=== PATIENT | female | born 1950 | race Caucasian/White ===

== ENCOUNTER 2021-12-13 11:23 | Outpatient (CLI) | payer MEDICARE, OTHER, SELFPAY ==
[2021-12-13 13:05] LABS: Vitamin D,25 Hydroxy 58.2 ng/mL
[2021-12-13 13:13] LABS: ALB/GLOB Ratio 1.3 RATIO (0.9-2.4); AST(SGOT) 23 U/L (15-37); Alanine Aminotransfer ALT/SGPT 26 U/L (13-56); Alkaline Phosphatase 82 U/L (45-117); Anion Gap 5 (5-15); BUN 15 mg/dL (7-18); BUN/Creat Ratio 17.7 RATIO (10-20); Calcium,Total 9.5 mg/dL (8.5-10.1); Chloride 107 mmol/L (98-107); Cholesterol 183 mg/dL (200); Creatinine, Serum 0.85 mg/dL (0.55-1.02); EST Glomerular Filtration Rate 70 mL/min (>60); Est Glom Filt Rate - Afr Amer 85 mL/min (>60); Free T3 2.8 pg/mL (2.18-3.98); Globulin 3.1 g/dL (2.2-4.2); Glucose 97 mg/dL (74-106); High Density Lipoprotein 80 mg/dL; Potassium 4.5 mmol/L (3.5-5.1); Protein, Total 7.1 g/dL (6.4-8.2); Sodium Level 140 mmol/L (136-145); T4 Free Direct 1.11 ng/dL (0.76-1.46); Thyroid Stim Hormone (TSH) 2.67 uIU/mL (0.358-3.74); Triglycerides 59 mg/dL; Very Low Density Lipoprotein 12 mg/dL (5-40)
[2021-12-14 21:07] LABS: Thyroid Peroxidase AB 8 IU/mL (0-34)
[2021-12-14 21:33] LABS: Thyroglobulin Antibody < 1.0 IU/mL (0.0-0.9)
== END 2021-12-13 23:59 | disposition home or self-care (01) ==
LOC: BIMLAB 11:24
PROVIDERS: PCP Internal Medicine; Referring Provider Internal Medicine; Visit Provider Internal Medicine
DX: E03.9 Hypothyroidism, unspecified (principal); L65.9 Nonscarring hair loss, unspecified; Z13.220 Encounter for screening for lipoid disorders; E55.9 Vitamin D deficiency, unspecified
CPT/HCPCS: 36415; 80053; 80061; 82306; 82533; 84439; 84443; 84481; 86376; 86800

== ENCOUNTER → 2025-08-03 | Outpatient (CLI) | payer MEDICARE, SELFPAY ==
--- OUTSIDE RECORDS SUMMARY | 2025-08-03 13:06 | XMS RPT_ITS | CCD ---
Author Organization [facility] Care Team Providers Care [place] Guide Name Role Phone MISC, PHYSICIAN Unavailable Unavailable Paco Fuentes MD Primary Care Provider [phone] Jesús Montes MD Unavailable Allergies Allergy Classification Reported Allergen(s) Allergy Type Date of Onset Reaction(s) Facility (1 source) Codeine Drug Allergy 04-05-2015 GI Upset [facility] (1 source) Sulfonamides (Antibiotic) Drug Allergy 04-05-2015 Rash [facility] Medications Completed/Discontinued Medications Medication Drug Class(es) Dates Sig (Normalized) Sig (Original) Calcium Carbonate (1 source) calcium carbonat e (CALCIUM 300 ORAL) Take by mouth. 0 Active Comment on above: Take by mouth. cholecalciferol 0.1 mg oral capsule (1 source) Vitamin D Start: 04-05-2015 cholecalciferol, vitamin D3, 4,000 unit cap Take by mouth. 0 04/05/2015 Active Comment on above: Take by mouth. lysine 500 mg oral tablet (1 source) Start: 04-05-2015 Lysine (L-LYSINE) 500 mg tab Take by mouth. 0 04/05/2015 Active Comment on above: Take by mouth. omega-3 fatty acids (SUPER OMEGA-3) 1,000 mg cap (1 source) Start: 04-05-2015 omega-3 fatty acids (SUPER OMEGA-3) 1,000 mg cap Take 2 capsules by mouth twice daily. 0 04/05/2015 Active Comment on above: Take 2 capsules by m outh twice daily. Problems Active Problems Problem Classification Problem Date Documented Da te Episodic/Chronic Cardiac dysrhythmias (1 source) Atrial fibrillation; Translations: [Unspecified atrial fibrillation] Onset: 03-30-2015 03-30-2015 Chronic Unclassified (1 source) Unknown / UNK(Unknown) Onset: 12-27-2017 Past or Other Problems Problem Classification Problem Date Documented Da te Episodic/Chronic Unclassified (1 source) SCREENING ALL 3 Onset: 12-27-2017 Results Test Name Value Interpretation Reference Range Facility Thyroid Antibodieson 022 TG AB < 1.0 Normal 0.0-0.9 [facility] Comment on above: Result Comment: Thyroglobulin Antibody m easured by [email or web address] Methodology Performed at: [facility], [place], [place] [id number] Decontamination Technician: Michael Kessler PhD, Phone: [phone] Performed By: #### L 3300.6750, L506.1000, L501.9520, L506.0400, L509.6000, L500.4050, L501.00547, L500.4100 #### [facility] [address] [place], [place], [id number] THYR PEROX AB 8 IU/mL Normal 0-34 [facility] Comment on above: Performed By: #### L3300.6750, L506.1000 , L501.9520, L506.0400, L509.6000, L500.4050, L501.68228, L500.4100 #### [facility] [address] [place], [place], [id number] CORTISOL SERUMon 12-13-2021 CORTISOL 13.10 ug/dL Normal 3.44-22.45 [facility] Comment on above: Result Comment: Adult (AM) 5.27 - 22.45 ug/dL Adult (PM) 3.44 - 16.76 ug/dL Please note revised CORTISOL reference range effective 2019. Performed By: #### L 3300.6750, L506.1000, L501.9520, L506.0400, L509.6000, L500.4050, L501.35677, L500.4100 #### [facility] [address] [place], [place], [id number] Comprehensive Metabolic Prof ilon 12-13-2021 Albumin [Mass/Vol] 4.0 g/dL Normal 3.2-5.0 [facility] Comment on above: Performed By: #### L3300.6750, L506.1000 , L501.9520, L506.0400, L509.6000, L500.4050, L501.55638, L500.4100 #### [facility] [address] [place], [address] Albumin/Globul in [Mass ratio] 1.3 {ratio} Normal 0.9-2.4 [facility] Comment on above: Performed By: #### L3300.6750, L506.1000 , L501.9520, L506.0400, L509.6000, L500.4050, L501.46524, L500.4100 #### [facility] [address] [place], [address] ALK P 82 U/L Normal 45-117 [facility] Comment on above: Performed By: #### L3300.6750, L506.1000 , L501.9520, L506.0400, L509.6000, L500.4050, L501.07682, L500.4100 #### [facility] [address] [place], [address] ALT [Catalytic activity/Vol] 26 U/L Normal 13-56 [facility] Comment on above: Performed By: #### L3300.6750, L506.1000 , L501.9520, L506.0400, L509.6000, L500.4050, L501.65928, L500.4100 #### [facility] [address] [place], [address] AST [Catalytic activity/Vol] 23 U/L Normal 15-37 [facility] Comment on above: Performed By: #### L3300.6750, L506.1000 , L501.9520, L506.0400, L509.6000, L500.4050, L501.26303, L500.4100 #### [facility] [address] [place], [address] Bilirubin [Mass/Vol] 0.70 mg/dL Normal 0.20-1.00 [facility] Comment on above: Result Comment: For patients on eltrombo pag therapy, use of Dimension [place] TBIL is not recommended. Performed By: #### L 3300.6750, L506.1000, L501.9520, L506.0400, L509.6000, L500.4050, L501.54730, L500.4100 #### [facility] [address] [place], [address] BUN/CRE 17.7 RATIO Normal 10-20 [facility] Comment on above: Performed By: #### L3300.6750, L506.1000 , L501.9520, L506.0400, L509.6000, L500.4050, L501.43069, L500.4100 #### [facility] [address] [place], [address] CA,Total 9.5 mg/dL Normal 8.5-10.1 [facility] Comment on above: Performed By: #### L3300.6750, L506.1000 , L501.9520, L506.0400, L509.6000, L500.4050, L501.33215, L500.4100 #### [facility] [address] [place], [address] Chloride [Moles/Vol] 107 mmol/L Normal 98-107 [facility] Comment on above: Performed By: #### L3300.6750, L506.1000 , L501.9520, L506.0400, L509.6000, L500.4050, L501.47878, L500.4100 #### [facility] [address] [place], [address] CO2 [Moles/Vol] 28.0 mmol/L Normal 21.0-32.0 [facility] Comment on above: Performed By: #### L3300.6750, L506.1000 , L501.9520, L506.0400, L509.6000, L500.4050, L501.67600, L500.4100 #### [facility] [address] [place], [address] Creatinine [Mass/Vol] 0.85 mg/dL Normal 0.55-1.02 [facility] Comment on above: Result Comment: The validity of the calc ulated GFR GFRAA in patients over 70 years has not been determined. Clinical correlation is essential. Performed By: #### L 3300.6750, L506.1000, L501.9520, L506.0400, L509.6000, L500.4050, L501.08055, L500.4100 #### [facility] [address] [place], [address] EST GFR - AA 85 mL/min Normal >60 [facility] Comment on above: Result Comment: GFR Hussein c Performed By: #### L 3300.6750, L506.1000, L501.9520, L506.0400, L509.6000, L500.4050, L501.87185, L500.4100 #### [facility] [address] [place], [address] GAP 5 Normal 5-15 [facility] Comment on above: Performed By: #### L3300.6750, L506.1000 , L501.9520, L506.0400, L509.6000, L500.4050, L501.28152, L500.4100 #### [facility] [address] [place], [address] GFR/1.73 sq M.predicted among non-blacks MDRD (S/P/Bld) [Vol rate/Area] 70 mL/min/{1.73_m2} Normal >60 [facility] Comment on above: Result Comment: Non- GFR Calc Performed By: #### L 3300.6750, L506.1000, L501.9520, L506.0400, L509.6000, L500.4050, L501.50916, L500.4100 #### [facility] [address] [place], [address] Globulin (S) [Mass/Vol] 3.1 g/dL Normal 2.2-4.2 [facility] Comment on above: Performed By: #### L3300.6750, L506.1000 , L501.9520, L506.0400, L509.6000, L500.4050, L501.50240, L500.4100 #### [facility] [address] [place], [address] Glucose [Mass/Vol] 97 mg/dL Normal 74-106 [facility] Comment on above: Performed By: #### L3300.6750, L506.1000 , L501.9520, L506.0400, L509.6000, L500.4050, L501.78920, L500.4100 #### [facility] [address] [place], [address] Potassium [Moles/Vol] 4.5 mmol/L Normal 3.5-5.1 [facility] Comment on above: Performed By: #### L3300.6750, L506.1000 , L501.9520, L506.0400, L509.6000, L500.4050, L501.84388, L500.4100 #### [facility] [address] [place], [address] Sodium [Moles/Vol] 140 mmol/L Normal 136-145 [facility] Comment on above: Performed By: #### L3300.6750, L506.1000 , L501.9520, L506.0400, L509.6000, L500.4050, L501.92556, L500.4100 #### [facility] [address] [place], [address] T PROT 7.1 g/dL Normal 6.4-8.2 [facility] Comment on above: Performed By: #### L3300.6750, L506.1000 , L501.9520, L506.0400, L509.6000, L500.4050, L501.12191, L500.4100 #### [facility] [address] [place], [address] Urea nitrogen [Mass/Vol] 15 mg/dL Normal 7-18 [facility] Comment on above: Performed By: #### L3300.6750, L506.1000 , L501.9520, L506.0400, L509.6000, L500.4050, L501.76153, L500.4100 #### [facility] [address] [place], [address] Free T3on 12-13-2021 Free T3 [Mass/Vol] 2.8 pg/mL Normal 2.18-3.98 [facility] Comment on above: Performed By: #### L3300.6750, L506.1000 , L501.9520, L506.0400, L509.6000, L500.4050, L501.68561, L500.4100 #### [facility] [address] [place], [address] Lipid Profileon 12-13-2021 Cholesterol [Mass/Vol] 183 mg/dL Normal 200 [facility] Comment on above: Result Comment: <200 mg/dL Desirable 200-240 mg/dL Borderline >240 mg/dL High Risk Performed By: #### L 3300.6750, L506.1000, L501.9520, L506.0400, L509.6000, L500.4050, L501.01928, L500.4100 #### [facility] [address] [place], [address] Cholesterol in HDL [Mass/Vol] 80 mg/dL Normal [facility] Comment on above: Result Comment: The drugs N-Acetylcystei ne and Metamizole may falsely depress this assay. Reference Range HDL <40 mg/dL Low HDL Cholesterol HDL >or= 60 mg/dL High HDL Cholesterol Performed By: #### L 3300.6750, L506.1000, L501.9520, L506.0400, L509.6000, L500.4050, L501.73234, L500.4100 #### [facility] [address] [place], [address] Cholesterol in LDL [Mass/Vol] 91 mg/dL Normal 0-130 [facility] Comment on above: Performed By: #### L3300.6750, L506.1000 , L501.9520, L506.0400, L509.6000, L500.4050, L501.77464, L500.4100 #### [facility] [address] [place], [address] Cholesterol in VLDL [Mass/Vol] 12 mg/dL Normal 5-40 [facility] Comment on above: Performed By: #### L3300.6750, L506.1000 , L501.9520, L506.0400, L509.6000, L500.4050, L501.55405, L500.4100 #### [facility] [address] [place], [address] Triglyceride [Mass/Vol] 59 mg/dL Normal [facility] Comment on above: Result Comment: The drugs N-Acetylcystei ne and Metamizole may falsely depress this assay. Serum Triglycerides Reference Interval Normal <150 mg/dL Borderline high 150 - 199 mg/dL High 200 - 499 mg/dL Very High > or = 500 mg/dL Performed By: #### L 3300.6750, L506.1000, L501.9520, L506.0400, L509.6000, L500.4050, L501.76331, L500.4100 #### [facility] [address] [place], [address] T4 Free Directon 12-13-2021 T4 FREE DIRECT 1.11 ng/dL Normal 0.76-1.46 [facility] Comment on above: Performed By: #### L3300.6750, L506.1000 , L501.9520, L506.0400, L509.6000, L500.4050, L501.65399, L500.4100 #### [facility] [address] [place], [address] Thyroid Stim Hormone (TSH)on 12-13-2021 TSH 2.67 uIU/mL Normal 0.358-3.74 [facility] Comment on above: Performed By: #### L3300.6750, L506.1000 , L501.9520, L506.0400, L509.6000, L500.4050, L501.93803, L500.4100 #### [facility] [address] [place], [address] Vitamin D,25 Hydroxyon 12-13 Vitamin D 25-OH 58.2 ng/mL Normal [facility] Comment on above: Result Comment: Vitamin D 25(OH) Status Range Deficiency <20 ng/mL (50nmol/L) Insufficiency 20 - 30 ng/mL (50 - 75 nmol/L) Sufficiency 30 - 100 ng/mL (75 - 250 nmol/L) Toxicity >100 ng/mL (>250 nmol/L) Performed By: #### L 3300.6750, L506.1000, L501.9520, L506.0400, L509.6000, L500.4050, L501.94734, L500.4100 #### [facility] [address] [place], [address] Internal Medicine Office Vis alexx 11-27-2021 Internal Medicine Office Visit [facility] [address] [place] [address] [address] [place], [place] [address] OFFICE VISIT Date of Service: 11/27/21 MR#: [id number] Acct: [id number] Name: DELROY WASHBURN Rep #: [id number] : 1950 Provider: Dr. 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 CARE -NPP MAILED Chief Complaint: est care Is patient in pain?: No Allergies codeine Allergy (Mild, Verified 11/27/21 13:25) nausea Sulfa (Sulfonamide Antibiotics) Allergy (Mild, Verified 11/27/21 13:25) rash Medications ascorbic acid (vitamin C) 1,000 mg tablet,extended release 3,000 mg PO DAILY tab 11/27/21 [History Confirmed 11/27/21] biotin 2,500 mcg capsule 2,500 mcg PO DAILY 11/27/21 [History Confirmed 11/27/21] cholecalciferol (vitamin D3) 50 mcg (2,000 unit) capsule 100 mcg PO BID cap 11/27/21 [History Confirmed 11/27/21] collegen PO 11/27/21 [History] magnesium carb,citrate,oxide mg PO 11/27/21 [History Confirmed 11/27/21] multivitamin 1 tab PO DAILY 11/27/21 [History Confirmed 11/27/21] PFSH Medical History (Updated 11/27/21 @ 16:[address] Zahra Daniels MD) Afib Hair loss History of COVID-19 History of rectal injury Hypothyroidism Surgical History (Updated 11/27/21 @ 13:29 by Anita Pro) H/O laparoscopy History of cardiac radiofrequency ablation History of cholecystectomy History of D C History of hysterectomy Family History (Updated 11/27/21 @ 13:31 by Anita Pro) Mother Diabetes Grandmother Hypertension Brother Lung cancer Bladder cancer Other Prostate cancer Social History (Updated 11/27/21 @ 13:32 by Anita Pro) Smoking Status: Never smoker alcohol intake: current alcohol intake frequency: holidays/special occasions only substance use type: does not use what type of physical activity do you participate in: walking and additional details: trampoline frequency: 3-4 times per week HPI HPI Chief Complaint: est care Details: DELROY WASHBURN, is a 71 F who presents to the office today to establish medical care. She is a 71-year-old female. She has no longstanding medical problems takes no significant routine long-term medications. She has a couple of different supplements including vitamin C, biotin, vitamin D3 and multivitamin. She also takes magnesium carbonate citrate oxide magnesium complex. She lives near the [facility]. Her medical care over the years has been through physicians in that area. They were discussing with others who are patients of mine and ultimately decided to come here as they understand that I practice more of a style that is lifestyle oriented. The patient has had COVID-19 relatively recently back in the end of May and early June 2021. She did have some labs right after that and they did make the observations that the LFTs were mildly elevated. However since then, and over the last couple months she has had persistent hair loss. States her hair is always been somewhat thin but she has noticed increased hair loss since the episode of COVID-19. She had high-grade fever for about 5 days I believe she stated were was like 104 degrees however she otherwise did not have any significant long-term issues or consequences to her knowledge. In any event she was wanting to have a few different things evaluated including thyroid functions, rechecking the liver function tests, cortisol level, D3 and thyroid antibodies. There has been some history of hypothyroidism I believe in the family prompting that. Her mother had colon cancer, late in life. She at 96 I believe. She believes her mother was diagnosed around the age of 85 with colon cancer and underwent surgical resection but no chemotherapy or radiation. Patient herself has had a couple of colonoscopies. They were done by physicians in the [facility]. Last one was perhaps between 5 and 10 years ago. He has never had polyps removed. She had a remote complete hysterectomy. Cholecystectomy. No significant concerns other than that above except that she has a small little lump area, adjacent to a varicose vein in her right upper thigh area. Nonpainful. Review of systems per chart. Physical exam. Vital signs on chart. EOMI. PERRLA. Sclera are clear. TMs are unremarkable with normal light reflexes. Canals are unremarkable. Posterior pharynx is unremarkable. Good dentition. No cervical or supraclavicular lymph nodes enlarged or tender. No clear thyromegaly. No thyroid nodules readily palpable. Lungs are without wheeze, rh (more content not included)... Normal [facility] ROUTINE COVIDon 06-14-2021 SARS-CoV-2 (COVID-19) RNA TRAY+probe Ql (Unsp spec) Positive Invalid Interpretation Code NEGATIVE [facility] Comment on above: Result Comment: Positive results are ind icative of the presence of SARS-CoV-2 RNA; clinical correlation with patient history and other diagnostic information is necessary to determine patient infection status. Positive results do not rule out bacterial infection or co-infection with other viruses. The agent detected may not be the definite cause of disease. This test has been authorized by the FDA under the Emergency Use Authorization (EUA) for use by authorized laboratories. This test was performed by PCR. RESULTED AFTER HOURS, CALL IN AM FAXED TO NICOLE DEWITT Performed By: #### L [phone] #### [facility] [address] [place] [address]# [phone] [facility] 06-14-2021 [facility] [place] DATE OF SERVICE: 11/2020 CHIEF COMPLAINT: Fever, cough, weakness, loss of taste and smell. HISTORY OF PRESENT ILLNESS: Patient is a 71-year-old female who presents today with a few day history of fever, cough, weakness, and loss of taste and smell. She states that she has not had any COVID exposures that she knows of, but she was wanting to come in order to be seen for this because of her symptoms that she has been having. She has been feeling very weak and fatigued. She has been taking [id number]-owymygo herbs and supplements to try to help, but it has not been helping much. She has also had a fever that goes up as high as 101, but stays around the 100 range. PAST MEDICAL HISTORY: None. PAST SURGICAL HISTORY: None. CURRENT MEDICATIONS: Reviewed and considered. ALLERGIES: To CODEINE and SULFA DRUGS. SOCIAL HISTORY: Denies tobacco or alcohol use. REVIEW OF SYSTEMS: [facility] PATIENT NAME: DELROY PICHARDO [place] MEDICAL REC #: [id number] [place] [address] [facility] PHYSICIAN General: Admits to fevers, chills, body aches, and fatigue. HEENT: Admits to sinusitis, slight sore throat. Denies headache, ear pain. Admits to loss of taste and smell. Respiratory: Admits to cough. Denies sputum production, wheezing, shortness of breath. Cardiovascular: Denies dyspnea, chest pain, palpitations. Abdominal: Denies nausea, vomiting. Admits to diarrhea. Denies abdominal pain. PHYSICAL EXAMINATION: Vital Signs: Blood pressure 102/70, pulse 94, respiration rate 14, temperature 99.2, pulse oximetry on room air 97%. General: Patient is alert and oriented x3. Appears to be in no acute distress. HEENT: Pupils equally round and reactive. TMs normal bilaterally. Posterior pharynx non-erythematous. No exudates present. Tonsils within tonsillar pillars. Uvula is midline. No pain to palpation frontal, maxillary, ethmoid sinuses. No anterior, posterior, submandibular lymphadenopathy. Respiratory: Normal breath sounds heard in all lung arrieta. No wheezing, rhonchi, or rales. Cardiac Examination: Regular rate and rhythm. No murmurs noted. TESTS: COVID-19 test was obtained here in the office. We will send [facility] PATIENT NAME: DELROY PICHARDO [place] [place] MEDICAL REC #: [id number] [place] [address] [facility] RE[facility] PHYSICIAN this out for testing. DIAGNOSIS: Viral upper respiratory infection. PLAN: Patient is to quarantine until we get the results. We will call her with the results. In the meantime, she is to use her [id number] . Patient agrees and understands the plan at this time. Patient is stable upon discharge from [facility]. KADE Morales/[id number] SSI File#: [id number] END OF DOCUMENT / CHANGE LOG FOLLOWS Last Edited By Santo. Signed By Nicole Dewitt PAC #[id number] Nicole Dewitt PAC #[id number] on 06/15/2021 09:15 ET on 06/15/2021 09:15 ET Revision Number - 2 [facility] PATIENT NAME: DELROY PICHARDO [address] [place] MEDICAL REC #: [id number] [place] [address] [facility] Verified/Reviewed by 06/15/[email or web address] [facility] PATIENT NAME: DEL[facility]ARDO [address] [facility] [place] MED[facility] REC #: [id number] [place] [address] [facility] PHYSICIAN Normal [facility] Naila 02-08-2020 CNPN Telephone (FMUPCE) -------- DELROY BALDERAS ([id number]) 1950 F Date Time Provider Department 02/08/20 PACO FUENTES [facility] During your visit today, we recorded the following information about you: Anju Childs 02/08/2020 9:22 AM Signed Left message for patient to call back to switch appointment to virtual on 02/13 Thank you Amber Salazar 02/08/2020 10:33 AM Signed Changed visit. Allergies As of Date: 02/08/2020 Noted Allergy Reaction CODEINE 04/05/2015 8 - GI Upset SULFA (SULFONAMIDE ANTIBIOTICS) 04/05/2015 2 - Rash Date Reviewed: 08/11/2019 Reviewed by: Paco Fuentes - Fully Assessed Reason for Visit: Virtual appointment [Other] Prescriptions as of 02/08/2020 Sig: CALCIUM 300 ORAL Take by mouth. LYSINE 500 MG TABLET Take by mouth. OMEGA-3 FATTY ACIDS 1,000 MG * Take 2 capsules by mouth twic* CHOLECALCIFEROL (VITAMIN D3) * Take by mouth. Problem List As Of Date 02/08/2020 Noted Resolved Atrial fibrillation (HCC) [I48.91] 03/30/2015 Encounter Status:Closed by ANJU CHILDS on 02/08/20 [facility] CNOVon 08-11-2019 [facility] Office Visit (FMUPCE ) -------- DELROY BALDERAS ([id number]) 1950 F Date Time Provider Department 08/11/19 8:40 AM PACO FUENTES [facility] [place] During your visit today, we recorded the following information about you: Pulse Blood pressure Weight Height 71/minute 120/80 84.8 kg 1.6 m Paco Fuentes MD 08/11/2019 12:47 PM Signed ASSESSMENT/PLAN: 1. Atrial fibrillation, unspecified type (HCC) She does very well with this. She is on no medicine. When she sees me back we will get her established with a local mold maker apprentice by her request. 2. History of total hysterectomy She had a total hysterectomy. No history of abnormal Pap smears. She needs no further Pap smears. 3. Influenza vaccine refused Discussed with the patient the need for influenza vaccination today. Discussed with the patient that vaccination is recommended not only by the Academy of family physicians but also by the CDC. We discussed that the influenza vaccination does not cause the flu. We discussed how we give the influenza vaccination at time of year when people are more likely acquire other viral illnesses. Patient has declined the flu shot this year. Follow up: Return in about 6 months (around 02/10/2020). CHIEF COMPLAINT: Patient presents with: Establish Care SUBJECTIVE: Ms. Harvey Washburn is a 69 year old female with past medical history of does not have any pertinent problems on file. presents to the office today as new patient to get established. She reports she has been feeling well. She is her mostly to get established. She has atrial fibrillation. She is seen at [facility] cardiology. She is status post ablation which has been successful. She was previously on Eliquis but due to the stability very fib she is no longer felt to need that medicine. She enjoys excellent health. She has no other chronic medical issues and does not take any prescription medicine. Her surgical history was reviewed. Her last colonoscopy was by Dr. Jaramillo and she thinks less than 5 years ago. She also sent in a Cologuard less than a year ago. HISTORY: I have reviewed the patient's problem list, current medications, allergies, and social history and updated them as needed. Ms. Harvey Washburn reports that she has never smoked. She has never used smokeless tobacco. Outpatient Encounter Medications as of 08/11/2019: calcium carbonate (CALCIUM 300 ORAL) Take by mouth. Disp: Rfl: omega-3 fatty acids (SUPER OMEGA-3) 1,000 mg cap Take 2 capsules by mouth twice daily. Disp: Rfl: 0 cholecalciferol, vitamin D3, 4,000 unit cap Take by mouth. Disp: Rfl: 0 [DISCONTINUED] apixaban (ELIQUIS) 5 mg tab tab(s) Take 1 tablet by mouth twice daily. (Patient not taking: Reported on 08/11/2019 ) Disp: 60 tablet Rfl: 3 Lysine (L-LYSINE) 500 mg tab Take by mouth. Disp: Rfl: 0 [DISCONTINUED] coenzyme Q10 100 mg cap Take 1 capsule by mouth. Disp: Rfl: 0 No facility-administered encounter medications on file as of 08/11/2019. Review of Systems Constitutional: Negative for unexpected weight change. Respiratory: Negative for cough, chest tightness, shortness of breath and wheezing. Cardiovascular: Negative for chest pain, palpitations and leg swelling. Gastrointestinal: Negative for abdominal pain. OBJECTIVE: Vitals: 08/11/19 0837 BP: 120/80 BP Site: Left Arm BP Position: Sitting BP Cuff Size: Regular Adult Pulse: 71 SpO2: 98% Weight: 84.8 kg (186 lb 14.4 oz) Height: 160 cm (5' 3") General: Alert and in no acute distress. Psych: Appropriate Mood and Affect noted during visit. HEENT: TM's are normal. Oropharynx has no erythema. No masses noted. Neck: Neck is Supple; No thyromegaly or cervical lymphadenopathy noted. Cardio: Regular Rate and Rhythm. No murmurs, Clicks or Rubs appreciated. Lungs: Clear to Auscultation Bilaterally without Rales, Wheezes or Crackles noted. Extremities: No Cyanosis. Edema was not present Vascular: No Carotid Bruits noted. Electronically signed and closed, Paco Fuentes M.D. August 11, 2019 Please note that parts of this document were created using Cognitum and therefore may contain grammatical errors. Referring Provider: SELF [200] Allergies As of Date: 08/11/2019 Noted Allergy Reaction CODEINE 04/05/2015 8 - GI Upset SULFA (SULFONAMIDE ANTIBIOTICS) 04/05/2015 2 - Rash Date Reviewed: 08/11/2019 Reviewed by: Paco Fuentes - Fully Assessed Reason for Visit: Establish Care [42] Primary Visit Diagnosis:Atrial fibrillation, unspecified type (HCC) [I48.91] Other Visit Diagnoses:History of total hysterectomy [Z90.710] Influenza vaccine refused [Z28.21] Prescriptions as of 08/11/2019 Sig: CALCIUM 300 ORAL Take by mouth. OMEGA-3 FATTY ACIDS 1,000 MG * Take 2 capsules by mouth twic* CHOLECALCIFEROL (VITAMIN D3) * Take by mouth. LYSINE 500 MG TABLET Take by mouth. Problem List As Of Date 08/11/2019 Noted Resolved Atrial fibrillation (HCC) [I48.91] INVALID FOR* Medications Discontinued During This Encounter apixaban (ELIQUIS) 5 mg tab tab(s) 60 t* 3 05/24/2015 08/11/2019 Route: ORAL Sig: Take 1 tablet by mouth twice daily. Patient not taking: Reported on 08/11/2019 Disc: Course of therapy completed coenzyme Q10 100 mg cap 0 04/05/2015 08/11/2019 Class: Historical Med Route: ORAL Sig: Take 1 capsule by mouth. Disc: Course of therapy completed Disposition: Return in about 6 months (around 02/10/2020). Follow-up and Disposition History Recorded Encounter Status:[facility] Tele[facility] ([facility]) -------- DELROY BALDERAS ([id number]) 1950 F Date Time Provider Department 08/11/19 PACO FUENTES [facility] During your visit today, we recorded the following information about you: Paco Fuentes MD 08/11/2019 12:48 PM Signed Rodrigo Milan. Do you see a colon or Cologuard report in PIN? Thanks Bjorn Henderson MA 08/11/2019 2:24 PM Signed No report in PIN. Paco Fuentes MD 08/11/2019 2:42 PM Signed Understood. She states Dr. Jaramillo did last colon. Can you call or send request for last colon report? Thanks Bjorn Henderson MA 08/13/2019 10:57 AM Signed Records release form faxed to Dr. Jaramillo's office. Allergies As of Date: 08/11/2019 Noted Allergy Reaction CODEINE 04/05/2015 8 - GI Upset SULFA (SULFONAMIDE ANTIBIOTICS) 04/05/2015 2 - Rash Date Reviewed: 08/11/2019 Reviewed by: Paco Fuentes - Fully Assessed Reason for Visit: Colonoscopy Report [1310] Prescriptions as of 08/11/2019 Sig: CALCIUM 300 ORAL Take by mouth. LYSINE 500 MG TABLET Take by mouth. OMEGA-3 FATTY ACIDS 1,000 MG * Take 2 capsules by mouth twic* CHOLECALCIFEROL (VITAMIN D3) * Take by mouth. Problem List As Of Date 08/11/2019 Noted Resolved Atrial fibrillation (HCC) [I48.91] INVALID FOR* Encounter Status:Closed by PACO FUENTES on 08/11/19 [facility] PROGRESSon 08-11-2019 PROGRESS HNO ID: [id number] Author: Paco Fuentes Service: ? Author Type: Physician Type: Progress Notes Filed: 08/11/2019 12:47 PM Note Text: ASSESSMENT/PLAN: 1. Atrial fibrillation, unspecified type (HCC) She does very well with this. She is on no medicine. When she sees me back we will get her established with a local mold maker apprentice by her request. 2. History of total hysterectomy She had a total hysterectomy. No history of abnormal Pap smears. She needs no further Pap smears. 3. Influenza vaccine refused Discussed with the patient the need for influenza vaccination today. Discussed with the patient that vaccination is recommended not only by the Academy of family physicians but also by the CDC. We discussed that the influenza vaccination does not cause the flu. We discussed how we give the influenza vaccination at time of year when people are more likely acquire other viral illnesses. Patient has declined the flu shot this year. Follow up: Return in about 6 months (around 02/10/2020). CHIEF COMPLAINT: Patient presents with: Establish Care SUBJECTIVE: Ms. Harvey Washburn is a 69 year old female with past medical history of does not have any pertinent problems on file. presents to the office today as new patient to get established. She reports she has been feeling well. She is her mostly to get established. She has atrial fibrillation. She is seen at [facility] cardiology. She is status post ablation which has been successful. She was previously on Eliquis but due to the stability very fib she is no longer felt to need that medicine. She enjoys excellent health. She has no other chronic medical issues and does not take any prescription medicine. Her surgical history was reviewed. Her last colonoscopy was by Dr. Jaramillo and she thinks less than 5 years ago. She also sent in a Cologuard less than a year ago. HISTORY: I have reviewed the patient's problem list, current medications, allergies, and social history and updated them as needed. Ms. Harvey Washburn reports that she has never smoked. She has never used smokeless tobacco. Outpatient Encounter Medications as of 08/11/2019: calcium carbonate (CALCIUM 300 ORAL) Take by mouth. Disp: Rfl: omega-3 fatty acids (SUPER OMEGA-3) 1,000 mg cap Take 2 capsules by mouth twice daily. Disp: Rfl: 0 cholecalciferol, vitamin D3, 4,000 unit cap Take by mouth. Disp: Rfl: 0 [DISCONTINUED] apixaban (ELIQUIS) 5 mg tab tab(s) Take 1 tablet by mouth twice daily. (Patient not taking: Reported on 08/11/2019 ) Disp: 60 tablet Rfl: 3 Lysine (L-LYSINE) 500 mg tab Take by mouth. Disp: Rfl: 0 [DISCONTINUED] coenzyme Q10 100 mg cap Take 1 capsule by mouth. Disp: Rfl: 0 No facility-administered encounter medications on file as of 08/11/2019. Review of Systems Constitutional: Negative for unexpected weight change. Respiratory: Negative for cough, chest tightness, shortness of breath and wheezing. Cardiovascular: Negative for chest pain, palpitations and leg swelling. Gastrointestinal: Negative for abdominal pain. OBJECTIVE: Vitals: 08/11/19 0837 BP: 120/80 BP Site: Left Arm BP Position: Sitting BP Cuff Size: Regular Adult Pulse: 71 SpO2: 98% Weight: 84.8 kg (186 lb 14.4 oz) Height: 160 cm (5' 3") General: Alert and in no acute distress. Psych: Appropriate Mood and Affect noted during visit. HEENT: TM's are normal. Oropharynx has no erythema. No masses noted. Neck: Neck is Supple; No thyromegaly or cervical lymphadenopathy noted. Cardio: Regular Rate and Rhythm. No murmurs, Clicks or Rubs appreciated. Lungs: Clear to Auscultation Bilaterally without Rales, Wheezes or Crackles noted. Extremities: No Cyanosis. Edema was not present Vascular: No Carotid Bruits noted. Electronically signed and closed, Paco Fuentes M.D. August 11, 2019 Please note that parts of this document were created using Cognitum and therefore may contain grammatical errors. Normal [facility] Vascular Screening Testson 0 12-27-2017 Vascular Screening Tests [place], [place] [address]- [facility] Accredited in:Extracranial Cerebrovascular, Visceral Vascular, Vascular Screening& Peripheral Arterial & Venous TestingPhone: MEDSTREAMING REPORTPatient: HARVEY-Lisandra WASHBURN Dr: ABHIJEET,[id number]/ [id number] FStatus: REG ANASTACIO Guzman for Visit: SCREENING ALL 3Service Date: 12/27/17Access#: [id number]: Vascular Screening TestsAbbreviated Final Report. Full Report available via Link to [employer]iza in [employer] PCI -ReferralCandy Image Viewer .Electronically Signed by: GUSTAVO HOUSTON M.D. 12/30/17 0850 ___GUSTAVO HOUSTON M.D.cc: ABHIJEETPHYSICIAN << Signature on File>> Reported By: GUSTAVO HOUSTON M.D. Signed By: GUSTAVO HOUSTON M.D.Tests performed at:[address] [phone] Normal [facility] Encounters Encounter Date Encounter Type Care Provider Facility Start: 06-14-2021 Patient encounter procedure Nicole Dewitt Work Phone: [facility] Start: 06-14-2021 Progress Note Nicole Patel rubia Work Phone: [facility] KATERYNA KAMINSKI Start: 12-27-2017 Ambulatory PHYSICIAN MISC Facility :[facility] Procedures Date Procedure Procedure Detail Performing Clinician Start: 08-11-2019 Adult depression screening assessment Nicole Dewitt Work Phone: Plan of Treatment Date Care Activity Detail Author Start: 02-07-2024 LIPID SCREEN LIPID SCREEN [facility] Start: 06-13-2022 Influenza vaccination INFLUENZA (Sea son Ended) [facility] Start: 02-06-2022 DIABETES SCREEN DIABETES SCREEN [facility] Start: 10-13-2021 ADVANCE DIRECTIVE DISCUSSION ADVANCE DIRECTIVE DISCUSSION [facility] Start: 08-11-2020 Adult depression scr eening assessment DEPRESSION SCREENING [facility] Start: 01-13-2017 BONE DENSITY BONE DENSITY [facility] Start: 01-13-2017 PNEUMOCOCCAL: 65+ (1 - PCV) PNEUMOCOCCAL: 65+ (1 - PCV) [facility] Start: 01-13-2002 SHINGRIX VACCINE (1 of 2) SHINGRIX V ACCINE (1 of 2) [facility] Start: 01-13-1997 COLOGUARD (FIT-DNA) COLOGUARD (FIT-D NA) [facility] Start: 01-13-1997 Colonoscopy COLONOSCOPY [facility] Start: 01-13-1997 COLORECTAL CANCER SCREENING COLORECTAL CANCER SCREENING [facility] Start: 01-13-[address] COLONOGRAPHY [facility] Start: 01-13-1997 FECAL OCCULT BLOOD FECAL OCCULT BLOO D [facility] Start: 01-13-1997 SIG[facility]OS[facility] Start: 1992 Mammography MAMMOGRAM [facility] Start: 01-13-1971 Urine microalbumin profile DTAP,TDAP ,TD (1 - Tdap) [facility] Start: 01-13-1970 HEPATITIS C SCREENING HEPATITIS C SC REENING [facility] Start: 01-13-1957 COVID-19 VACCINE (#1) COVID-19 VACCI NE (#1) [facility] Payers Date Payer Category Payer Unknown MMO MMO [employer] [id number] 2017-Present [phone] [address] [place] [address] Indemnity [id number] 2017 Medicare MEDICARE MEDICAR E A AND B [id number] 2017-Present [phone] [address] [address] [place] [address] Medicare [id number] Self-pay [id number] Social History Date Type Detail Facility Tobacco smoking stat [facility] Never smoked tobacco [facility] Start: 08-11-2019 Alcohol intake Current drinke r of alcohol (finding) [facility] Start: 08-11-2019 History SDOH Alcohol Std Drinks 1 [facility] Start: 08-11-2019 History SDOH Alcohol Binge 2 [facility] Start: 1950 Sex [facility]igned [facility] History of Present illness Narrative 06-14-2021 Nicole Dewitt - 06/14/2021 1:21 PM EDT Note Date & Type Note Facility 06-14-2021 History of Present illness Narrative DATE OF SERVICE: 06/14/2021 CHIEF COMPLAINT: Fever, cough, weakness, loss of taste and smell. HISTORY OF PRESENT ILLNESS: Patient is a 71-year-old female who presents today with a few day history of fever, cough, weakness, and loss of taste and smell. She states that she has not had any COVID exposures that she knows of, but she was wanting to come in order to be seen for this because of her symptoms that she has been having. She has been feeling very weak and fatigued. She has been taking adpj-mej-cpabcwt herbs and supplements to try to help, but it has not been helping much. She has also had a fever that goes up as high as 101, but stays around the 100 range. PAST MEDICAL HISTORY: None. PAST SURGICAL HISTORY: None. CURRENT MEDICATIONS: Reviewed and considered. ALLERGIES: To CODEINE and SULFA DRUGS. SOCIAL HISTORY: Denies tobacco or alcohol use. REVIEW OF SYSTEMS: General: Admits to fevers, chills, body aches, and fatigue. HEENT: Admits to sinusitis, slight sore throat. Denies headache, ear pain. Admits to loss of taste and smell. Respiratory: Admits to cough. Denies sputum production, wheezing, shortness of breath. Cardiovascular: Denies dyspnea, chest pain, palpitations. Abdominal: Denies nausea, vomiting. Admits to diarrhea. Denies abdominal pain. PHYSICAL EXAMINATION: Vital Signs: Blood pressure 102/70, pulse 94, respiration rate 14, temperature 99.2, pulse oximetry on room air 97%. General: Patient is alert and oriented x3. Appears to be in no acute distress. HEENT: Pupils equally round and reactive. TMs normal bilaterally. Posterior pharynx non-erythematous. No exudates present. Tonsils within tonsillar pillars. Uvula is midline. No pain to palpation frontal, maxillary, ethmoid sinuses. No anterior, posterior, submandibular lymphadenopathy. Respiratory: Normal breath sounds heard in all lung arrieta. No wheezing, rhonchi, or rales. Cardiac Examination: Regular rate and rhythm. No murmurs noted. TESTS: COVID-19 test was obtained here in the office. We will send this out for testing. DIAGNOSIS: Viral upper respiratory infection. PLAN: Patient is to quarantine until we get the results. We will call her with the results. In the meantime, she is to use her [id number]-hmj-[id number] . Patient agrees and understands the plan at this time. Patient is stable upon discharge from [facility]. KADE Morales/[id number] [facility] File#: [id number] END OF DOCUMENT / CHANGE LOG FOLLOWS Last Edited By Santo. Signed By Nicole Dewitt PAC #[email or web address] Nicole Dewitt PAC #[email or web address] on 06/15/2021 09:15 ET on 06/15/2021 09:15 ET Revision Number - 2 ^^^ Verified/Reviewed by 06/15/[email or web address] [facility] PATIENT NAME: DELROY PICHARDO [facility] [address] [place] MEDICAL REC #: [id number] [place] [address] [facility] REPORT STATCARE PHYSICIAN documented in this encounter [facility] Summary Purpose Family History No Family History Records FoundNo Family History Records FoundNo Family History Records FoundNo Family History Records Found Advance Directives Documents on File Type Date Recorded Patient Antisqueak Applier Expl anation Advance Directive(s) 08/15/2016 10:44 AM Advance Directive(s) 09/21/2015 5:43 AM Additional Source Comments INFORMATION SOURCE (unrecogn ized section and content) DATE CREATED AUTHOR 04/03/2018 [facility] DATE CREATED AUTHOR AUTHOR'S ORGANIZ ATION 02/08/2020 [facility] DATE CREATED AUTHOR AUTHOR'S ORGANIZ ATION 07/02/2021 [facility] [place] DATE CREATED AUTHOR AUTHOR'S ORGANIZ ATION 01/07/2022 [facility] Source Comments (unrecognize d section and content) In the event this informatio n is protected by the Federal Confidentiality of Alcohol and Drug Abuse Patient Records regulations: The Federal rules restrict any use of the information to criminally investigate or prosecute any alcohol or drug abuse patient.[facility] Care Teams (unrecognized sec tion and content) [place] Guide Relationship Specialty Start Date End Date Paco Fuentes MD [address] [place] [address] [place] [address] PCP - General Family Practice 08/11/19 Jesús Montes MD [address] [place] [address] Primary Staff Physician Cardiology 12/29/18 FOR RECORDS PERTAINING TO PATIENTS WHO ARE OR HAVE BEEN ENROLLED IN A CHEMICAL DEPENDENCY/SUBSTANCEABUSE PROGRAM, SOME INFORMATION MAY BE OMITTED. This clinical summary was aggregated from multiple sources. Caution should be exercised in using it in the provision of clinical care. This summary normalizes information from multiple sources, and as a consequence, information in this document may materially change the coding, format and clinical context of patient data. In addition, data may be omitted in some cases. CLINICAL DECISIONS SHOULD BE BASED ON THE PRIMARY CLINICAL RECORDS. [facility]. provides no warranty or guarantee of the accuracy or completeness of information in this document.
[2025-08-03 13:39] LABS: Hematocrit 40.6 % (37-47); Hemoglobin 13.4 g/dL (12.0-15.0); Immature Granulocytes Count 0.020 X10^3/uL (0.0-0.0); Mean Corp Hgb Conc 33.0 g/dL (32-36); Mean Corpuscular Volume 92.9 fL (81-99); Mean Platelet Vol. 10.0 fl (6.2-12.0); NRBC Flagged by Analyzer 0 % (0-5); Platelet Count 251 K/mm3 (150-450); RBC Distribution Width CV 13.1 % (11.6-14.6); RBC Distribution Width SD 44.8 fl (35.1-43.9); Red Blood Count 4.37 M/mm3 (4.2-5.4); White Blood Count 6.6 K/mm3 (4.4-11.0)
[2025-08-03 15:21] LABS: AST(SGOT) 25 U/L (<=31); Alanine Aminotransfer ALT/SGPT 16 U/L (<=34); Albumin, Serum 4.4 g/dL (3.4-4.8); Alkaline Phosphatase 73 U/L (35-104); Anion Gap 11 (5-15); BUN 15 mg/dL (4-19); BUN/Creat Ratio 20.4 RATIO (10-20); CORTISOL PM 7.11 ug/dL (2.68-10.50); Calcium,Total 9.6 mg/dL (7.6-11.0); Carbon Dioxide 24.4 mmol/L (21.0-32.0); Chloride 106 mmol/L (98-108); Cholesterol 182 mg/dL (<=200); Free T3 2.5 pg/mL (2.18-3.98); Globulin 2.5 g/dL (2.2-4.2); Glucose 101 mg/dL (70-99); Low Density Lipoprotein Calc. 95 mg/dL; Magnesium 2.4 mg/dL (1.5-2.2); Potassium 4.7 mmol/L (3.3-5.1); Triglycerides 57 mg/dL; Very Low Density Lipoprotein 11 mg/dL (5-40); Vitamin B12 834 pg/mL (180-914); Vitamin D,25 Hydroxy 60.6 ng/mL (30-100); cholesterol:hdl ratio screen 2.41
== END | disposition home or self-care (01) ==
LOC: LAB 12:37
PROVIDERS: PCP Internal Medicine; Referring Provider Internal Medicine; Visit Provider Internal Medicine
DX: E03.9 Hypothyroidism, unspecified (principal); E55.9 Vitamin D deficiency, unspecified; L65.9 Nonscarring hair loss, unspecified; R73.9 Hyperglycemia, unspecified; E53.8 Deficiency of other specified B group vitamins
CPT/HCPCS: 36415; 80053; 80061; 82306; 82533; 82607; 83036; 83735; 84439; 84443; 84481; 85025; 86376; 86800